=== PATIENT | male | born 1955 | race Caucasian/White ===

== ENCOUNTER 2017-09-21 21:07 | Emergency (ER) | payer BC ==
[~2017-09-21] VITALS: Ht 180.3 cm; Wt 128.7 kg
[~2017-09-21 21:07] MED LIST: ALBUTEROL2.5 MG/3 M IH; ATROVENT 00.5 MG/2.5 IH; DILAUDID2 MG PO; ERGOCALCIF50000 UNIT PO; NOHOMEMEDS; OXYCODONE HCL10 MG PO; STOOL SOFTENER100 M1 PO; VALIUM5 MG PO; vitamin d PO
[2017-09-21 21:54] LABS: HEMATOCRIT 49.5 % (38.0-50.0); MCH 30.1 PG (29.0-34.0); MCHC 33.1 G/DL (30.0-36.0); MCV 90.8 FL (86-99); MEAN PLAT.VOLUME 9.6 uM^3 (9.0-12.4); PLATELET COUNT 226 K/uL (156-360); RBC DIS.WIDTH-CV 13.2 % (11.8-14.6); RBC DIS.WIDTH-SD 44.4 % (39-53); RED BLOOD COUNT 5.45 M/uL (4.00-5.50); WHITE BLOOD COUNT 12.7 K/uL (4.1-10.2)
[2017-09-21 22:01] LABS: CHLORIDE 104 mEq/L (99-109); POTASSIUM 4.1 mEq/L (3.7-5.4); SODIUM 139 mEq/L (136-147)
[2017-09-21 22:03] LABS: GLUCOSE 190 mg/dL (70-99)
[2017-09-21 22:05] LABS: ANION GAP 10 MEQ/L (2-14); TOTAL BILIRUBIN 0.5 mg/dL (0.0-1.0)
[2017-09-21 22:07] LABS: ALKALINE PHOSPHATASE 95 IU/L (3-129); GFR ESTIMATE (CALCULATED) > 59 mL/min/
[2017-09-21 22:08] LABS: UREA NITROGEN (BUN) 18 mg/dL (9-23)
[2017-09-21 22:10] LABS: LIPASE 134 U/L (1.0-51.0)
[2017-09-21 22:19] LABS: ADD MIUA? YES; BILIRUBIN NEGATIVE; BLOOD NEGATIVE; COLOR YELLOW ((YELLOW)); GLUCOSE (STRIP) >=500; KETONES 5; LEUKOCYTES SMALL; NITRITE NEGATIVE; PROTEIN (STRIP) NEGATIVE; SPECIFIC GRAVITY 1.024 (1.000-1.030)
[2017-09-21 22:31] LABS: BACTERIA RARE /HPF; CALCIUM OXALATE CRYSTALS 3+ /HPF; EPITHELIAL CELLS RARE /HPF; MUCUS TRACE /LPF; UCUL ADDED? YES
[2017-09-22 01:00] VITALS: BP 141/83
== END 2017-09-22 01:02 | disposition home or self-care (01) ==
LOC: EME 21:07
DX: R10.13 Epigastric pain (principal); R79.89 Other specified abnormal findings of blood chemistry; R74.8 Abnormal levels of other serum enzymes; J44.9 Chronic obstructive pulmonary disease, unspecified; F17.200 Nicotine dependence, unspecified, uncomplicated
CPT/HCPCS: 74177; 76705; 80053; 81003; 83690; 85027; 87077; 87086; 87186; 93005; 99281; 99284